=== PATIENT | male | born 1980 | race African-American/Black ===

== ENCOUNTER 2018-05-10 19:11 | Emergency (ER) | payer SELFPAY ==
[~2018-05-10] VITALS: Ht 172.7 cm; Wt 71.8 kg
[~2018-05-10 19:11] MED LIST: NO HOME MEDS
[2018-05-10 20:11] LABS: HEMATOCRIT 37.9 % (39.0-50.0); HEMOGLOBIN 12.6 g/dl (14.0-18.0); IMMATURE GRANULOCYTES 0.6 % (0.0-5.0); MEAN CELL VOLUME 95.2 fL CALC (80.0-100.0); MEAN CORPUSCULAR HGB 31.7 pG CALC (26.0-32.0); MEAN CORPUSCULAR HGB CONC 33.2 g/L CALC (32.0-36.0); NEUT# 3.89 thou/uL (1.82-7.42); RED BLOOD COUNT 3.98 mill/uL (4.70-6.10); RED CELL DISTRI WIDTH 12.3 % (11.5-15.5)
[2018-05-10 20:12] LABS: URINE BILIRUBIN - DIPSTICK NEGATIVE (NEGATIVE); URINE BLOOD DIPSTICK LARGE (NEGATIVE); URINE COLOR YELLOW; URINE GLUCOSE - DIPSTICK NEGATIVE (NEGATIVE); URINE KETONE NEGATIVE (NEGATIVE); URINE NITRITE - DIPSTICK NEGATIVE (Negative); URINE PROTEIN - DIPSTICK NEGATIVE (NEG-TRACE); URINE UROBILINOGEN - DIPSTICK 0.2 E.U./dL (0.2)
[2018-05-10 20:13] LABS: URINE CLARITY SL CLOUDY; URINE LEUK ESTERASE LARGE (NEGATIVE)
[2018-05-10 20:22] LABS: URINE RBC 25-50 RBC/hpf (0-5); URINE WBC 50-100 WBC/hpf (0-5)
[2018-05-10 20:41] LABS: ALBUMIN 3.8 g/dL (3.2-5.0); ALKALINE PHOSPHATASE 97 u/l (38-126); ANION GAP 15 (6-22 (CALC)); BILIRUBIN, TOTAL 0.2 mg/dL (0.0-1.4); BUN 10 mg/dL (9-20); BUN/CREATININE RATIO 10 (12-20 (CALC)); CARBON DIOXIDE 26 mmol/l (22-30); CHLORIDE 103 mmol/l (95-108); CREATININE 0.9 mg/dL (0.7-1.3); GFR > 60 ML/MIN (>=60 (CALC)); GFR FOR AFR.AMER. > 60 ML/MIN (>=60 (CALC)); POTASSIUM 3.7 mmol/l (3.5-5.1); SGOT/AST 40 u/l (17-59); SGPT/ALT 41 u/l (21-72); SODIUM 140 mmol/l (137-146); TOTAL PROTEIN 7.6 g/dL (6.3-8.2)
[2018-05-10] MEDS ORDERED: DOXYCYCL HYC100 MG PO (21:06)
[2018-05-10 21:23] VITALS: BP 140/77
== END 2018-05-10 21:33 | disposition home or self-care (01) | DRG 690 ==
LOC: ED 19:11
PROVIDERS: Family Medicine
DX: N34.2 Other urethritis (principal); M77.9 Enthesopathy, unspecified; F17.210 Nicotine dependence, cigarettes, uncomplicated

== ENCOUNTER 2022-10-02 22:01 | Emergency (ER) | payer SELFPAY ==
[~2022-10-02] VITALS: Ht 172.7 cm; Wt 72.7 kg
[~2022-10-02 22:01] MED LIST changes: +DOXYCYCL HYC100 MG PO
[2022-10-02 22:16] VITALS: BP 127/84
[2022-10-02 22:39] VITALS: BP 137/81
[2022-10-02 22:45] LABS: HEMATOCRIT 36.8 % (39.0-50.0); HEMOGLOBIN 12.4 g/dl (14.0-18.0); LYMPH% 42.8 % (15-41); MEAN CELL VOLUME 96.8 fL CALC (80.0-100.0); MEAN CORPUSCULAR HGB 32.6 pG CALC (26.0-32.0); MEAN CORPUSCULAR HGB CONC 33.7 g/dL CAL (32.0-36.0); MONO% 17.3 % (2-13); NEUT# 0.81 thou/uL (1.82-7.42); NEUT% 38.9 % (42-76); RED BLOOD COUNT 3.8 mill/uL (4.70-6.10); RED CELL DISTRI WIDTH 13.5 % (11.5-15.5)
[2022-10-02 22:57] LABS: ALBUMIN 4.4 g/dL (3.2-5.0); ALKALINE PHOSPHATASE 85 u/l (38-126); ANION GAP 15 (6-22 (CALC)); BILIRUBIN, TOTAL 0.5 mg/dL (0.2-1.3); BUN 14 mg/dL (9-20); BUN/CREATININE RATIO 13 (12-20 (CALC)); CARBON DIOXIDE 25 mmol/l (22-30); CHLORIDE 103 mmol/l (95-108); CREATININE 1.1 mg/dL (0.7-1.3); ETHYL ALCOHOL 161 mg/dl (0-30); GFR FOR AFR.AMER. > 60 ML/MIN (>=60 (CALC)); GFR OTHER RACES > 60 ML/MIN (>=60 (CALC)); POTASSIUM 3.9 mmol/l (3.5-5.1); SGOT/AST 177 u/l (17-59); SODIUM 138 mmol/l (137-146); TOTAL PROTEIN 8.3 g/dL (6.3-8.2)
[2022-10-02 23:00] VITALS: BP 123/78
[2022-10-02 23:30] VITALS: BP 129/74
[2022-10-03] VITALS (13 sets, daily range): BP systolic 112–136; BP diastolic 52–85
[2022-10-03 01:07] LABS: URINE BILIRUBIN - DIPSTICK NEGATIVE (NEGATIVE); URINE BLOOD DIPSTICK TRACE-INTACT (NEGATIVE); URINE COLOR YELLOW; URINE GLUCOSE - DIPSTICK NEGATIVE (NEGATIVE); URINE KETONE TRACE mg/dL (NEGATIVE); URINE LEUK ESTERASE NEGATIVE (NEGATIVE); URINE PROTEIN - DIPSTICK 30 mg/dL (NEG-TRACE); URINE SPECIFIC GRAVITY 1.025; URINE UROBILINOGEN - DIPSTICK 0.2 E.U./dL (0.2)
[2022-10-03 01:10] LABS: URINE NITRITE - DIPSTICK NEGATIVE (Negative)
[2022-10-03 01:29] LABS: URINE BACTERIA FEW hpf; URINE EPITHELIAL CELLS RARE EPI/hpf (0-FEW); URINE WBC 0-2 WBC/hpf (0-5)
== END 2022-10-03 06:46 | DRG 897 ==
LOC: ED 22:01
PROVIDERS: Emergency Medicine
DX: F10.10 Alcohol abuse, uncomplicated (principal); R45.851 Suicidal ideations; Y90.1 Blood alcohol level of 20-39 mg/100 ml

== ENCOUNTER 2023-09-12 11:41 | Observation (INO) | payer SELFPAY ==
[2023-09-12] VITALS (22 sets, daily range): BP systolic 126–171; BP diastolic 73–137
[~2023-09-12] VITALS: Ht 172.7 cm; Wt 79.3 kg
[2023-09-12 12:40] LABS: BASO% 0.3 % (0-3); EOS% 0.6 % (0-8); HEMATOCRIT 36.9 % (39.0-50.0); HEMOGLOBIN 12.1 g/dl (14.0-18.0); IMMATURE GRANULOCYTES 0.3 % (0.0-5.0); LYMPH% 22.1 % (15-41); MEAN CELL VOLUME 95.6 fL CALC (80.0-100.0); MEAN CORPUSCULAR HGB 31.3 pG CALC (26.0-32.0); MEAN CORPUSCULAR HGB CONC 32.8 g/dL CAL (32.0-36.0); MONO% 11.1 % (2-13); NEUT# 4.48 thou/uL (1.82-7.42); NEUT% 65.6 % (42-76); RED BLOOD COUNT 3.86 mill/uL (4.70-6.10); RED CELL DISTRI WIDTH 12.8 % (11.5-15.5)
[2023-09-12 13:09] LABS: ALBUMIN 3.8 g/dL (3.2-5.0); ALKALINE PHOSPHATASE 94 u/l (38-126); ANION GAP 13 (6-22 (CALC)); BILIRUBIN, TOTAL 0.5 mg/dL (0.2-1.3); BUN 10 mg/dL (9-20); BUN/CREATININE RATIO 15 (12-20 (CALC)); CARBON DIOXIDE 23 mmol/l (22-30); CHLORIDE 104 mmol/l (95-108); CREATININE 0.7 mg/dL (0.7-1.3); ETHYL ALCOHOL 52 mg/dl (0-30); GFR FOR AFR.AMER. > 60 ML/MIN (>=60 (CALC)); GFR OTHER RACES > 60 ML/MIN (>=60 (CALC)); POTASSIUM 3.8 mmol/l (3.5-5.1); SODIUM 136 mmol/l (137-146); TOTAL PROTEIN 7.1 g/dL (6.3-8.2)
[2023-09-12 13:11] LABS: SGOT/AST 37 u/l (17-59)
[2023-09-12 13:12] LABS: CPK 158 u/l (55-170)
[2023-09-12 17:51] LABS: URINE BILIRUBIN - DIPSTICK Negative (NEGATIVE); URINE BLOOD DIPSTICK Negative (NEGATIVE); URINE GLUCOSE - DIPSTICK Negative (NEGATIVE); URINE KETONE Negative (NEGATIVE); URINE LEUK ESTERASE Negative (NEGATIVE); URINE NITRITE - DIPSTICK Negative (Negative); URINE PROTEIN - DIPSTICK Negative (NEG-TRACE); URINE SPECIFIC GRAVITY 1.015; URINE UROBILINOGEN - DIPSTICK 0.2 E.U./dL (0.2)
[2023-09-12 17:54] LABS: URINE COLOR Yellow
[2023-09-13] VITALS (37 sets, daily range): BP systolic 118–164; BP diastolic 63–132
[2023-09-13 05:08] LABS: HEMATOCRIT 34.7 % (39.0-50.0); HEMOGLOBIN 11.6 g/dl (14.0-18.0); MEAN CELL VOLUME 96.4 fL CALC (80.0-100.0); MEAN CORPUSCULAR HGB 32.2 pG CALC (26.0-32.0); MEAN CORPUSCULAR HGB CONC 33.4 g/dL CAL (32.0-36.0); RED BLOOD COUNT 3.6 mill/uL (4.70-6.10); RED CELL DISTRI WIDTH 12.7 % (11.5-15.5)
[2023-09-13 05:20] LABS: ALBUMIN 3.3 g/dL (3.2-5.0); ALKALINE PHOSPHATASE 85 u/l (38-126); ANION GAP 9 (6-22 (CALC)); BILIRUBIN, TOTAL 0.7 mg/dL (0.2-1.3); BUN 10 mg/dL (9-20); BUN/CREATININE RATIO 14 (12-20 (CALC)); CARBON DIOXIDE 27 mmol/l (22-30); CHLORIDE 105 mmol/l (95-108); CREATININE 0.7 mg/dL (0.7-1.3); GFR FOR AFR.AMER. > 60 ML/MIN (>=60 (CALC)); GFR OTHER RACES > 60 ML/MIN (>=60 (CALC)); MAGNESIUM 1.9 mg/dL (1.6-2.3); POTASSIUM 3.8 mmol/l (3.5-5.1); SGOT/AST 32 u/l (17-59); SODIUM 137 mmol/l (137-146); TOTAL PROTEIN 6.6 g/dL (6.3-8.2)
[2023-09-14] VITALS (13 sets, daily range): BP systolic 111–137; BP diastolic 62–90
[2023-09-14 07:22] LABS: BASO% 0.6 % (0-3); HEMATOCRIT 35.6 % (39.0-50.0); HEMOGLOBIN 11.9 g/dl (14.0-18.0); IMMATURE GRANULOCYTES 0.3 % (0.0-5.0); LYMPH% 40.5 % (15-41); MEAN CELL VOLUME 96.5 fL CALC (80.0-100.0); MEAN CORPUSCULAR HGB 32.2 pG CALC (26.0-32.0); MEAN CORPUSCULAR HGB CONC 33.4 g/dL CAL (32.0-36.0); MONO% 14.6 % (2-13); NEUT# 1.38 thou/uL (1.82-7.42); RED BLOOD COUNT 3.69 mill/uL (4.70-6.10); RED CELL DISTRI WIDTH 12.5 % (11.5-15.5)
[2023-09-14 07:55] LABS: ANION GAP 6 (6-22 (CALC)); BUN 10 mg/dL (9-20); BUN/CREATININE RATIO 15 (12-20 (CALC)); CARBON DIOXIDE 29 mmol/l (22-30); CHLORIDE 108 mmol/l (95-108); CREATININE 0.6 mg/dL (0.7-1.3); GFR FOR AFR.AMER. > 60 ML/MIN (>=60 (CALC)); GFR OTHER RACES > 60 ML/MIN (>=60 (CALC)); POTASSIUM 4.3 mmol/l (3.5-5.1); SODIUM 139 mmol/l (137-146)
== END 2023-09-14 17:55 | DRG 563 ==
LOC: ED 11:41 → ICU 18:43 → MS2 09-14 11:16
PROVIDERS: Emergency Medicine; ADMIT Student in an Organized Health Care Education/Training Program; ATTEND Student in an Organized Health Care Education/Training Program
DX: S82.041A Displaced comminuted fracture of right patella, initial encounter for closed fracture (principal); R41.0 Disorientation, unspecified; T68.XXXA Hypothermia, initial encounter; R62.7 Adult failure to thrive; F17.200 Nicotine dependence, unspecified, uncomplicated; W19.XXXA Unspecified fall, initial encounter; X31.XXXA Exposure to excessive natural cold, initial encounter; Z68.26 Body mass index [BMI] 26.0-26.9, adult
CPT/HCPCS: G0378; J1650